=== PATIENT | male | born 1965 | race Hispanic/Latino ===

== ENCOUNTER → 2025-03-24 | Outpatient (CLI) | payer OTHER ==
--- NOTE | 2025-03-24 17:07 | HMCIMG ---
EXAM: CR Chest, 2 View. CLINICAL HISTORY: HEART ATTACK, HX OF OPEN HEART SURGERY COMPARISON: None provided. FINDINGS: LUNGS: No pulmonary infiltrates. PLEURAL SPACES: No pleural effusion or pneumothorax. MEDIASTINUM: Cardiomegaly. Status post tenotomy. BONES: No acute osseous abnormality. IMPRESSION: 1. No pulmonary infiltrates. No pleural effusions. 2. Cardiomegaly. Status post tenotomy. /[place]
--- NOTE | 2025-03-25 05:57 | HMCIMG ---
EXAM: CR Lumbar Spine, 3 views. CLINICAL HISTORY: Pain. COMPARISON: None provided. FINDINGS: Lumbar alignment is within normal limits. Mild osteopenia. Moderate spondylosis and degenerative disc space narrowing, most pronounced at L5-S1. Normal vertebral body heights. No acute fracture. Soft tissues are within normal limits. IMPRESSION: No acute bony abnormality is evident. Mild osteopenia. Moderate spondylosis and degenerative disc space narrowing, most pronounced at L5-S1. /[place]
== END | disposition home or self-care (01) ==
LOC: RAH 10:54
PROVIDERS: ATTEND Internal Medicine
DX: M47.817 Spondylosis without myelopathy or radiculopathy, lumbosacral region (principal); M48.07 Spinal stenosis, lumbosacral region; I51.7 Cardiomegaly; I21.9 Acute myocardial infarction, unspecified; M85.80 Other specified disorders of bone density and structure, unspecified site; M54.50 Low back pain, unspecified
CPT/HCPCS: 71046; 72100